=== PATIENT | female | born 1975 | race Caucasian/White ===

== ENCOUNTER → 2016-10-18 | Outpatient (REF) | payer OTHER ==
[2016-10-18 16:46] LABS: MEAN CORPUSCULAR VOLUME 90.6 fl (80.0-96.0); RED CELL DISTRIBUTION WIDTH 14.1 % (11.5-14.5); WHITE BLOOD COUNT 9.6 K/mm3 (4.0-10.0)
[2016-10-18 18:30] LABS: ALBUMIN 3.9 GM/DL (3.2-5.2); ALBUMIN/GLOBULIN RATIO 1.34 (1.00-1.93); ALKALINE PHOSPHATASE 93 U/L (45-117); ALT/SGPT 27 U/L (12-78); ANION GAP 6 MEQ/L (8-16); AST/SGOT 14 U/L (15-37); BILIRUBIN,TOTAL 0.2 MG/DL (0.2-1.0); BLOOD UREA NITROGEN 10 MG/DL (7-18); CALCIUM LEVEL 8.8 MG/DL (8.5-10.1); CARBON DIOXIDE LEVEL 28 MEQ/L (21-32); CHLORIDE LEVEL 106 MEQ/L (98-107); CREATININE FOR GFR 0.75 MG/DL (0.55-1.02); GLOMERULAR FILTRATION RATE > 60.0 (>58); GLUCOSE, FASTING 90 MG/DL (70-105); POTASSIUM SERUM 4.5 MEQ/L (3.5-5.1); SODIUM LEVEL 140 MEQ/L (136-145); TOTAL PROTEIN 6.8 GM/DL (6.4-8.2)
== END ==
LOC: M SFHCLERA 13:00
PROVIDERS: ATTEND Nurse Practitioner Family
DX: R06.09 Other forms of dyspnea (principal)

== ENCOUNTER → 2016-12-16 | Outpatient (CLI) | payer OTHER ==
--- NOTE | 2016-12-16 12:20 | REP ---
Cervical spine series: Nine views. History: Numbness in tingling in the left arm. Findings: Lateral views done in flexion/extension and neutral position show preserved vertebral body heights and normal alignment in the cervical spine. Disc spaces are maintained except at C5-6 where there is mild disc space narrowing. No subluxation or instability is seen. Swimmer's lateral view shows no additional abnormality. Oblique images demonstrate intact neural foramina on the left at each level. On the right, there is minimal uncovertebral spurring visible at C5-6. AP and open mouth odontoid views are unremarkable. Impression: Mild degenerative disc narrowing at C5-6. There is minimal uncovertebral spurring on the right at C5-6 visible radiographically. Otherwise negative cervical spine series. Signed by Anjel Cedillo MD 12/16/2016 12:31 P
== END ==
LOC: M LRY 10:45
PROVIDERS: ATTEND Family Medicine
DX: R20.0 Anesthesia of skin (principal); M50.90 Cervical disc disorder, unspecified, unspecified cervical region

== ENCOUNTER → 2016-12-16 | Outpatient (REF) | payer OTHER | LOC: M SFHCLERA 10:21 | PROVIDERS: ATTEND Family Medicine | DX: R30.0 Dysuria (principal) ==

== ENCOUNTER → 2017-03-07 | Outpatient (CLI) | payer OTHER ==
--- NOTE | 2017-03-07 12:47 | REP ---
Pelvic ultrasound including transabdominal, endovaginal and Doppler ultrasound assessment: The bladder is adequately distended. The uterus is anteverted. The fundus is mildly retroflexed. The uterus is normal size measuring 8.3 x 4.3 by 4.6 cm. The myometrium is heterogeneous. There is an IUD in the endometrial canal. This obscures visualization of the endometrium. Endometrial thickness cannot be assessed. There is no free fluid in the endometrial canal. The right ovary is normal size measuring 2.6 x 1.9 x 2.8 cm. There is no dominant right ovarian mass or cyst. There is vascular flow in right ovary with the Doppler resistive index of intraparenchymal arteries measuring 0.31. The left ovary could not be visualized on transabdominal or endovaginal imaging. Impression: There is an IUD within the endometrial canal. The myometrium is heterogeneous. The right ovary is unremarkable. The left ovary could not be visualized. Signed by Bola Rodrigues MD 03/07/2017 12:39 P
== END ==
LOC: M RAD 11:52
PROVIDERS: ATTEND Advanced Practice Midwife
DX: N92.4 Excessive bleeding in the premenopausal period (principal); Z97.5 Presence of (intrauterine) contraceptive device

== ENCOUNTER 2017-06-29 12:48 | Emergency (ER) | payer OTHER ==
[~2017-06-29] VITALS: Ht 165.1 cm; Wt 88.6 kg
[2017-06-29] MEDS ORDERED: LOSARTAN/HCT (13:07)
[2017-06-29] MEDS ORDERED: ATOR1TAB19 (13:07)
[2017-06-29 14:39] VITALS: BP 142/86
== END 2017-06-29 15:05 | disposition home or self-care (01) ==
LOC: M ED 12:48
DX: E86.0 Dehydration (principal); I10 Essential (primary) hypertension; Z87.891 Personal history of nicotine dependence

== ENCOUNTER → 2017-08-01 | Outpatient (REF) | payer OTHER ==
[2017-08-01 16:42] LABS: BASO # 0.1 10^3/uL (0.0-0.2); BASO % 0.5 % (0.0-1.0); EOS # 0.1 10^3/uL (0.0-0.50); EOS % 1.1 % (0.0-3.0); HEMATOCRIT 43.9 % (36.0-47.0); HEMOGLOBIN 13.9 g/dl (12.0-16.0); IMMATURE GRANULOCYTE % 0.4 % (0-0); LYMPH # 2.2 10^3/uL (1.5-4.5); LYMPH % 21.1 % (24.0-44.0); MEAN CORPUSCULAR HEMOGLOBIN 28.6 pg (27.0-33.0); MEAN CORPUSCULAR HGB CONC 31.7 g/dl (32.0-36.5); MEAN CORPUSCULAR VOLUME 90.3 fl (80.0-96.0); MONO # 0.7 10^3/uL (0.0-0.8); MONO % 6.4 % (0.0-5.0); NEUTROPHILS # 7.3 10^3/uL (1.8-7.7); NEUTROPHILS % 70.5 % (36.0-66.0); PLATELET COUNT, AUTOMATED 279 10^3/uL (150-450); RED BLOOD COUNT 4.86 10^6/uL (4.00-5.40); RED CELL DISTRIBUTION WIDTH 15.2 % (11.5-14.5); WHITE BLOOD COUNT 10.3 10^3/uL (4.0-10.0)
[2017-08-01 17:16] LABS: ESTIMATED AVERAGE GLUCOSE 114 MG/DL (60-110); HEMOGLOBIN A1c 5.6 %
[2017-08-01 17:18] LABS: CHOLESTEROL LEVEL 182 MG/DL (<200); CHOLESTEROL RISK RATIO 2.935 (<5); FREE T4 0.92 NG/DL (0.76-1.46); HDL CHOLESTEROL 62 MG/DL (>40); LDL CHOLESTEROL 82.6 MG/DL (<100); NON-HDL-C 120 MG/DL; TRIGLYCERIDES LEVEL 187 MG/DL (<150)
== END ==
LOC: M SFHCLERA 11:22
DX: E78.5 Hyperlipidemia, unspecified (principal); I10 Essential (primary) hypertension; R53.83 Other fatigue

== ENCOUNTER → 2017-09-11 | Outpatient (REF) | payer OTHER ==
[2017-09-11 13:26] LABS: FREE T4 0.87 NG/DL (0.76-1.46)
== END ==
LOC: M SFHCLERA 09:19
DX: R53.83 Other fatigue (principal); D72.9 Disorder of white blood cells, unspecified

== ENCOUNTER 2018-04-06 13:19 | Emergency (ER) | payer OTHER ==
[2018-04-06 14:05] LABS: BASO # 0.1 10^3/uL (0.0-0.2); BASO % 0.4 % (0.0-1.0); EOS # 0.1 10^3/uL (0.0-0.50); EOS % 0.9 % (0.0-3.0); HEMOGLOBIN 14.6 g/dl (12.0-15.5); IMMATURE GRANULOCYTE % 0.4 % (0-3.0); LYMPH # 2.6 10^3/uL (1.5-4.5); MEAN CORPUSCULAR HEMOGLOBIN 31.7 pg (27.0-33.0); MEAN CORPUSCULAR HGB CONC 33.2 g/dl (32.0-36.5); MEAN CORPUSCULAR VOLUME 95.7 fl (80.0-96.0); MONO # 0.9 10^3/uL (0.0-0.8); MONO % 7.4 % (0.0-5.0); NEUTROPHILS % 68.9 % (36.0-66.0); PLATELET COUNT, AUTOMATED 230 10^3/uL (150-450); RED CELL DISTRIBUTION WIDTH 13.2 % (11.5-14.5); WHITE BLOOD COUNT 11.6 10^3/uL (4.0-10.0)
[2018-04-06 14:21] LABS: INR 0.96; PARTIAL THROMBOPLASTIN TIME 30.7 SECONDS (25.4-37.6); PROTHROMBIN TIME 12.8 SECONDS (12.1-14.4)
[2018-04-06 14:34] LABS: ANION GAP 7 MEQ/L (8-16); AST/SGOT 19 U/L (7-37); BILIRUBIN,DIRECT 0.1 MG/DL (0.0-0.2); BLOOD UREA NITROGEN 8 MG/DL (7-18); CALCIUM LEVEL 9.1 MG/DL (8.5-10.1); CARBON DIOXIDE LEVEL 29 MEQ/L (21-32); CHLORIDE LEVEL 104 MEQ/L (98-107); CREATININE FOR GFR 0.86 MG/DL (0.55-1.30); GLOMERULAR FILTRATION RATE > 60.0 (>58); GLUCOSE, FASTING 91 MG/DL (70-100); LIPASE 133 U/L (73-393); POTASSIUM SERUM 3.8 MEQ/L (3.5-5.1); SODIUM LEVEL 140 MEQ/L (136-145); TROPONIN I < 0.02 NG/ML (< 0.10)
[2018-04-06] MEDS: GI COCKTAIL 50ML BTL(HYOSCYAMINE/MAALOX/LIDOCAINE VISCOUS)(1:3:1) PO (14:45)
[2018-04-06 14:48] LABS: ALBUMIN/GLOBULIN RATIO 1.11 (1.00-1.93); ALKALINE PHOSPHATASE 86 U/L (45-117); ALT/SGPT 30 U/L (12-78); BILIRUBIN,TOTAL 0.6 MG/DL (0.2-1.0); CK-MB VALUE MASS < 1.0 NG/ML (<3.6); CPK CREATINE PHOSPHOKINASE 119 U/L (26-192); FREE T4 0.98 NG/DL (0.76-1.46); MB/CK RELATIVE INDEX 0.84 (< OR =4); TOTAL PROTEIN 7.6 GM/DL (6.4-8.2)
== END 2018-04-06 15:39 | disposition home or self-care (01) ==
LOC: M ED 13:19
DX: R00.2 Palpitations (principal); I10 Essential (primary) hypertension; E78.5 Hyperlipidemia, unspecified; F17.200 Nicotine dependence, unspecified, uncomplicated; Z79.899 Other long term (current) drug therapy; Z79.82 Long term (current) use of aspirin
CPT/HCPCS: 71045

== ENCOUNTER → 2018-07-30 | Outpatient (REF) | payer OTHER ==
[~2018-07-30] MED LIST: AMLO25TA PO; ASPI81TA85 PO; ATOR1TAB19; LOSARTAN/HCT
[2018-07-30 11:58] LABS: BASO # 0.1 10^3/uL (0.0-0.2); BASO % 0.6 % (0.0-1.0); EOS # 0.2 10^3/uL (0.0-0.50); EOS % 1.7 % (0.0-3.0); HEMOGLOBIN 14.3 g/dl (12.0-15.5); LYMPH # 2.1 10^3/uL (1.5-4.5); MEAN CORPUSCULAR HEMOGLOBIN 32.4 pg (27.0-33.0); MEAN CORPUSCULAR HGB CONC 33.3 g/dl (32.0-36.5); MEAN CORPUSCULAR VOLUME 97.5 fl (80.0-96.0); MONO # 0.7 10^3/uL (0.0-0.8); MONO % 7.2 % (0.0-5.0); NEUTROPHILS # 6.6 10^3/uL (1.8-7.7); PLATELET COUNT, AUTOMATED 223 10^3/uL (150-450); RED BLOOD COUNT 4.41 10^6/uL (4.00-5.40); WHITE BLOOD COUNT 9.7 10^3/uL (4.0-10.0)
[2018-07-30 12:34] LABS: ALBUMIN 3.5 GM/DL (3.2-5.2); ALT/SGPT 44 U/L (12-78); BILIRUBIN,TOTAL 0.6 MG/DL (0.2-1.0); BLOOD UREA NITROGEN 12 MG/DL (7-18); CALCIUM LEVEL 8.4 MG/DL (8.5-10.1); CARBON DIOXIDE LEVEL 26 MEQ/L (21-32); CHLORIDE LEVEL 105 MEQ/L (98-107); CHOLESTEROL LEVEL 138 MG/DL (<200); CHOLESTEROL RISK RATIO 2.875 (<5); CREATININE FOR GFR 0.72 MG/DL (0.55-1.30); FREE T4 0.83 NG/DL (0.76-1.46); GLOMERULAR FILTRATION RATE > 60.0 (>58); GLUCOSE, FASTING 91 MG/DL (70-100); HDL CHOLESTEROL 48 MG/DL (>40); LDL CHOLESTEROL 62 MG/DL (<100); NON-HDL-C 90 MG/DL; POTASSIUM SERUM 4.3 MEQ/L (3.5-5.1); SODIUM LEVEL 138 MEQ/L (136-145); TOTAL PROTEIN 6.5 GM/DL (6.4-8.2); TRIGLYCERIDES LEVEL 138 MG/DL (<150)
[2018-07-30 13:18] LABS: HEMOGLOBIN A1c 5.8 %
== END ==
LOC: M SFHCLERA 09:10
PROVIDERS: ATTEND Family Medicine
DX: D72.829 Elevated white blood cell count, unspecified (principal)

== ENCOUNTER → 2018-12-27 | Outpatient (CLI) | payer OTHER ==
--- NOTE | 2018-12-27 16:03 | REP ---
Clinical: Decreased breath sounds . Comparison: 04/06/2018 . Technique: PA and lateral. Findings: The mediastinum and cardiac silhouette are normal. The lung gonzalez are clear and without acute consolidation, effusion, or pneumothorax. The skeletal structures are intact and normal. Impression: 1. No acute cardiopulmonary process. Electronically Signed by Vargas Wesley MD 12/27/2018 03:55 P
--- NOTE | 2018-12-27 16:07 | REP ---
Clinical: Nausea. Technique: Two supine views of the abdomen and pelvis. Findings: Bowel gas pattern is nonspecific. No organomegaly. No abnormal calcifications. Skeletal structures are intact. IUD identified in the pelvis. Impression: Nonspecific abdominal radiographs. Electronically Signed by Vargas Wesley MD 12/27/2018 03:58 P
== END ==
LOC: M LRY 15:18
PROVIDERS: ATTEND Nurse Practitioner Family
DX: R06.89 Other abnormalities of breathing (principal); R11.0 Nausea

== ENCOUNTER 2019-02-23 09:43 | Emergency (ER) | payer OTHER ==
[~2019-02-23] VITALS: Ht 162.6 cm; Wt 87.3 kg
[2019-02-23] MEDS ORDERED: LOSA100T5 (09:52)
[2019-02-23] MEDS ORDERED: MIRE1IUD IU (09:53)
[2019-02-23 10:39] LABS: BASO # 0.1 10^3/uL (0.0-0.2); BASO % 0.5 % (0.0-1.0); EOS # 0.1 10^3/uL (0.0-0.50); EOS % 0.8 % (0.0-3.0); HEMATOCRIT 48.6 % (36.0-47.0); HEMOGLOBIN 15.9 g/dl (12.0-15.5); LYMPH # 2.5 10^3/uL (1.5-4.5); LYMPH % 20.8 % (24.0-44.0); MEAN CORPUSCULAR HEMOGLOBIN 31.6 pg (27.0-33.0); MEAN CORPUSCULAR HGB CONC 32.7 g/dl (32.0-36.5); MEAN CORPUSCULAR VOLUME 96.6 fl (80.0-96.0); MONO # 0.8 10^3/uL (0.0-0.8); MONO % 6.7 % (0.0-5.0); NEUTROPHILS # 8.6 10^3/uL (1.8-7.7); NEUTROPHILS % 70.8 % (36.0-66.0); PLATELET COUNT, AUTOMATED 242 10^3/uL (150-450); RED BLOOD COUNT 5.03 10^6/uL (4.00-5.40); WHITE BLOOD COUNT 12.2 10^3/uL (4.0-10.0)
[2019-02-23] MEDS ORDERED: ZOFR4TAB16 PO (10:40)
[2019-02-23] MEDS ORDERED: TRUVTAB PO (10:40)
[2019-02-23] MEDS ORDERED: RALT40TA PO (10:40)
[2019-02-23] MEDS ORDERED: HEPATITIS B IMMUNE GLOBULIN 110 UNIT/0.5 ML IM ONE (10:45)
[2019-02-23] MEDS ORDERED: EXPOSURE KIT-ADULT 7 DAY SUPPLY PO ONE (11:00)
[2019-02-23 11:13] LABS: HIVEXPOSED0 NEGATIVE (NEGATIVE)
[2019-02-23] MEDS ORDERED: HEPATITIS B IMMUNE GLOBULIN 5ML INJ (J1571) IM ONE (11:15)
[2019-02-23 11:40] VITALS: BP 148/87
[2019-02-25 10:33] LABS: HEPATITIS B SURFACE ANTIBODY NEGATIVE (POSITIVE); HEPATITIS B SURFACE ANTIGEN NEGATIVE (NEGATIVE)
== END 2019-02-23 11:47 | disposition home or self-care (01) ==
LOC: M ED 09:43
DX: Z77.21 Contact with and (suspected) exposure to potentially hazardous body fluids (principal); I10 Essential (primary) hypertension; E78.5 Hyperlipidemia, unspecified; Z79.899 Other long term (current) drug therapy; Z97.5 Presence of (intrauterine) contraceptive device; F17.210 Nicotine dependence, cigarettes, uncomplicated

== ENCOUNTER → 2019-02-28 | Outpatient (REF) | payer OTHER ==
[~2019-02-28] MED LIST changes: +LOSA100T5; +MIRE1IUD IU; +RALT40TA PO; +TRUVTAB PO; +ZOFR4TAB16 PO
[2019-02-28 17:13] LABS: ALBUMIN 3.9 GM/DL (3.2-5.2); ALT/SGPT 29 U/L (12-78); BILIRUBIN,TOTAL 0.6 MG/DL (0.2-1.0); BLOOD UREA NITROGEN 6 MG/DL (7-18); CALCIUM LEVEL 8.9 MG/DL (8.5-10.1); CARBON DIOXIDE LEVEL 29 MEQ/L (21-32); CHLORIDE LEVEL 103 MEQ/L (98-107); CHOLESTEROL LEVEL 152 MG/DL (<200); CHOLESTEROL RISK RATIO 3.534 (<5); CREATININE FOR GFR 0.87 MG/DL (0.55-1.30); FREE T4 1.05 NG/DL (0.76-1.46); GLOMERULAR FILTRATION RATE > 60.0 (>58); GLUCOSE, FASTING 85 MG/DL (70-100); HDL CHOLESTEROL 43 MG/DL (>40); LDL CHOLESTEROL 82 MG/DL (<100); NON-HDL-C 109 MG/DL; POTASSIUM SERUM 3.9 MEQ/L (3.5-5.1); SODIUM LEVEL 141 MEQ/L (136-145); TOTAL PROTEIN 6.9 GM/DL (6.4-8.2); TRIGLYCERIDES LEVEL 133 MG/DL (<150)
[2019-02-28 17:16] LABS: HEMATOCRIT 45.8 % (36.0-47.0); HEMOGLOBIN 14.8 g/dl (12.0-15.5); MEAN CORPUSCULAR HEMOGLOBIN 31.1 pg (27.0-33.0); MEAN CORPUSCULAR HGB CONC 32.3 g/dl (32.0-36.5); MEAN CORPUSCULAR VOLUME 96.2 fl (80.0-96.0); PLATELET COUNT, AUTOMATED 228 10^3/uL (150-450); RED BLOOD COUNT 4.76 10^6/uL (4.00-5.40); WHITE BLOOD COUNT 10.3 10^3/uL (4.0-10.0)
== END ==
LOC: M LRY 16:10
PROVIDERS: ATTEND Internal Medicine Cardiovascular Disease
DX: I10 Essential (primary) hypertension (principal); E78.5 Hyperlipidemia, unspecified

== ENCOUNTER → 2019-02-28 | Outpatient (REF) | payer OTHER | LOC: M SFHCLERA 10:50 | PROVIDERS: ATTEND Family Medicine | DX: Z78.9 Other specified health status (principal) ==

== ENCOUNTER → 2019-07-16 | Outpatient (REF) | payer OTHER ==
[2019-07-16 16:31] LABS: BASO # 0.1 10^3/uL (0.0-0.2); BASO % 0.7 % (0.0-1.0); EOS # 0.1 10^3/uL (0.0-0.5); EOS % 1.1 % (0.0-3.0); HEMATOCRIT 47.4 % (36.0-47.0); HEMOGLOBIN 14.9 g/dl (12.0-15.5); LYMPH # 2.5 10^3/uL (1.5-5.0); LYMPH % 24.8 % (24.0-44.0); MEAN CORPUSCULAR HEMOGLOBIN 31.7 pg (27.0-33.0); MEAN CORPUSCULAR HGB CONC 31.4 g/dl (32.0-36.5); MEAN CORPUSCULAR VOLUME 100.9 fl (80.0-96.0); MONO # 0.8 10^3/uL (0.0-0.8); MONO % 7.7 % (0.0-5.0); NEUTROPHILS # 6.6 10^3/uL (1.5-8.5); NEUTROPHILS % 65.4 % (36.0-66.0); PLATELET COUNT, AUTOMATED 237 10^3/uL (150-450); WHITE BLOOD COUNT 10.2 10^3/uL (4.0-10.0)
[2019-07-16 16:51] LABS: ALT/SGPT 24 U/L (12-78); BILIRUBIN,TOTAL 0.4 MG/DL (0.2-1.0); BLOOD UREA NITROGEN 11 MG/DL (7-18); CALCIUM LEVEL 8.8 MG/DL (8.5-10.1); CARBON DIOXIDE LEVEL 26 MEQ/L (21-32); CHLORIDE LEVEL 107 MEQ/L (98-107); CREATININE FOR GFR 0.74 MG/DL (0.55-1.30); GLOMERULAR FILTRATION RATE > 60.0 (>58); GLUCOSE, FASTING 89 MG/DL (70-100); POTASSIUM SERUM 4.4 MEQ/L (3.5-5.1); SODIUM LEVEL 140 MEQ/L (136-145); TOTAL PROTEIN 7.2 GM/DL (6.4-8.2)
[2019-07-17 13:56] LABS: HIV SCREEN CENTAUR EXPOSED NEGATIVE (NEGATIVE)
== END ==
LOC: M SFHCLERA 10:39
PROVIDERS: ATTEND Family Medicine
DX: Z57.9 Occupational exposure to unspecified risk factor (principal); R63.4 Abnormal weight loss

== ENCOUNTER → 2019-08-08 | Outpatient (REF) | payer OTHER ==
[2019-08-08 17:27] LABS: BASO % 0.4 % (0.0-1.0); EOS # 0.1 10^3/uL (0.0-0.5); EOS % 0.6 % (0.0-3.0); HEMATOCRIT 47.3 % (36.0-47.0); HEMOGLOBIN 15.2 g/dl (12.0-15.5); LYMPH # 2.2 10^3/uL (1.5-5.0); LYMPH % 19.5 % (24.0-44.0); MEAN CORPUSCULAR HEMOGLOBIN 32.5 pg (27.0-33.0); MEAN CORPUSCULAR HGB CONC 32.1 g/dl (32.0-36.5); MEAN CORPUSCULAR VOLUME 101.1 fl (80.0-96.0); MONO # 0.7 10^3/uL (0.0-0.8); NEUTROPHILS # 8.1 10^3/uL (1.5-8.5); PLATELET COUNT, AUTOMATED 225 10^3/uL (150-450); RED BLOOD COUNT 4.68 10^6/uL (4.00-5.40); WHITE BLOOD COUNT 11.1 10^3/uL (4.0-10.0)
[2019-08-08 17:40] LABS: FOLATE 4.6 NG/ML
== END ==
LOC: M SFHCLERA 10:42
PROVIDERS: ATTEND Family Medicine
DX: D75.89 Other specified diseases of blood and blood-forming organs (principal)

== ENCOUNTER → 2019-10-01 | Outpatient (CLI) | payer OTHER ==
[~2019-10-01] MED LIST changes: +HYDR25TAB PO; +LOSA100T50 PO; +VITA500079 PO
--- NOTE | 2019-10-01 10:05 | REP ---
ULTRASOUND ABDOMEN: Real-time sonographic evaluation of the abdomen performed. The gallbladder demonstrates no evidence of intraluminal sludge or calculi, wall thickening or pericholecystic fluid. There is no intrahepatic or extrahepatic biliary dilation, common bile duct measuring 4 mm. Liver is somewhat heterogenous in echotexture with no gross mass. There is normal direction of flow in the main portal vein which measures 12 mm. There appears to be patent umbilical vein suggesting portal hypertension. Visualized pancreas is grossly unremarkable but not optimally seen due to overlying bowel gas. The spleen has a normal length of 11.3 cm but the splenic index is slightly increased at 548, normal less than 480. Spleen measures 11.3 x 9.9 x 4.9 cm. No intrinsic abnormality is seen. Kidneys are normal in size and echotexture, right kidney measuring 11.1 x 4.0 x 3.9 cm and left kidney 11.1 x 4.9 x 4.4 cm. There is no overt hydronephrosis and no renal mass is seen. Small extrarenal pelvis is seen bilaterally. Abdominal aorta is normal in caliber with no aneurysm, proximally measuring 2.5 cm in AP dimension and distally 1.3 cm. No ascites is seen. IMPRESSION: Somewhat heterogenous echotexture of the liver. Patent umbilical vein suggests portal hypertension. Main portal vein measures 12 mm with normal direction of flow. Spleen is normal in length at 11.3 cm but the splenic index is mildly increased at 548, suggesting that the spleen is upper limits of normal to slightly enlarged. Electronically Signed by Bola Barba MD 10/01/2019 07:50 P
== END ==
LOC: M RAD 07:57
PROVIDERS: ATTEND Internal Medicine Hematology & Oncology
DX: D75.0 Familial erythrocytosis (principal); D75.89 Other specified diseases of blood and blood-forming organs

== ENCOUNTER → 2019-10-16 | Outpatient (REF) | payer OTHER ==
[2019-10-16 16:52] LABS: FERRITIN 52 NG/ML (8-252); IRON (FE) 112 UG/DL (50-170); PERCENT SATURATION 26.9 % (13.2-45.0); TOTAL IRON BINDING CAPACITY 416 UG/DL (250-450); TOTAL PROTEIN 7.2 GM/DL (6.4-8.2)
[2019-10-17 14:28] LABS: ALBUMIN 4.54 GM/DL (3.29-5.55); ALPHA-1-GLOBULIN % 4.4 % (2.9-4.9); ALPHA-1-GLOBULINS 0.32 GM/DL (0.17-0.41); ALPHA-2-GLOBULINS 0.75 GM/DL (0.42-0.99); ALPHA-2-GLOBULINS % 10.4 % (7.1-11.8); BETA-1-GLOBULINS 0.47 GM/DL (0.28-0.60); BETA-1-GLOBULINS % 6.5 % (4.7-7.2); BETA-2-GLOBULINS 0.34 GM/DL (0.19-0.55); BETA-2-GLOBULINS % 4.7 % (3.2-6.5); GAMMA GLOBULINS 0.79 GM/DL (0.65-1.58)
[2019-10-18 09:45] LABS: HEPATITIS B SURFACE ANTIGEN NEGATIVE (NEGATIVE)
[2019-10-18 10:13] LABS: HEPATITIS B CORE ANTIBODY IGM NEGATIVE (NEGATIVE)
[2019-10-18 10:15] LABS: HEPATITIS A ANTIBODY IGM NEGATIVE (NEGATIVE)
== END ==
LOC: M SFHCLERA 11:01
PROVIDERS: ATTEND Family Medicine
DX: K76.6 Portal hypertension (principal)

== ENCOUNTER 2020-03-21 20:09 | Emergency (ER) | payer OTHER ==
[~2020-03-21] VITALS: Ht 162.6 cm; Wt 76.4 kg
[~2020-03-21 20:09] MED LIST changes: -ASPI81TA85 PO; +ASPI81TA86 PO
[2020-03-21] MEDS ORDERED: GNP28TAB2 PO (20:14)
[2020-03-21] MEDS ORDERED: VITA100T28 PO (20:14)
[2020-03-21 20:47] LABS: BASO # 0.1 10^3/uL (0.0-0.2); BASO % 0.6 % (0.0-1.0); EOS # 0.1 10^3/uL (0.0-0.5); EOS % 0.8 % (0.0-3.0); HEMATOCRIT 48.9 % (36.0-47.0); HEMOGLOBIN 16.1 g/dl (12.0-15.5); LYMPH % 24.9 % (24.0-44.0); MEAN CORPUSCULAR HEMOGLOBIN 32.9 pg (27.0-33.0); MEAN CORPUSCULAR HGB CONC 32.9 g/dl (32.0-36.5); MONO # 0.8 10^3/uL (0.0-0.8); MONO % 6.6 % (0.0-5.0); NEUTROPHILS % 66.8 % (36.0-66.0); PLATELET COUNT, AUTOMATED 244 10^3/uL (150-450); RED BLOOD COUNT 4.89 10^6/uL (4.00-5.40)
[2020-03-21 20:56] LABS: INR 0.92; PROTHROMBIN TIME 12.5 SECONDS (11.8-14.0)
[2020-03-21] MEDS ORDERED: GI COCKTAIL 50ML BTL(HYOSCYAMINE/MAALOX/LIDOCAINE VISCOUS)(1:3:1) PO ONE (21:15)
--- NOTE | 2020-03-21 21:16 | REPVR ---
PROCEDURE INFORMATION: Exam: XR Chest, 1 View Exam date and time: 03/21/2020 8:51 PM Age: 44 years old Clinical indication: Other: Chest pain TECHNIQUE: Imaging protocol: XR of the chest Views: 1 view. COMPARISON: CR CHEST 2 VIEW 12/27/2018 3:39 PM FINDINGS: Lungs: Unremarkable. No consolidation. Pleural space: Unremarkable. No pleural effusion. No pneumothorax. Heart/Mediastinum: Unremarkable. No cardiomegaly. Bones/joints: Minimal upper thoracic dextroscoliosis and minimal lower thoracic levoscoliosis. IMPRESSION: 1. Minimal S shaped scoliosis of the thoracic spine. 2. Otherwise negative chest without significant change from 12/27/2018. Electronically signed by: Ranulfo Barrios On 03/21/2020 21:16:31 PM
[2020-03-21 21:46] LABS: ALT/SGPT 24 U/L (12-78); BILIRUBIN,DIRECT 0.1 MG/DL (0.0-0.2); BILIRUBIN,TOTAL 0.3 MG/DL (0.2-1.0); BLOOD UREA NITROGEN 8 MG/DL (7-18); CALCIUM LEVEL 9.1 MG/DL (8.5-10.1); CARBON DIOXIDE LEVEL 29 MEQ/L (21-32); CHLORIDE LEVEL 107 MEQ/L (98-107); CK-MB VALUE MASS < 1.0 NG/ML (<3.6); CPK CREATINE PHOSPHOKINASE 83 U/L (26-192); CREATININE FOR GFR 0.78 MG/DL (0.55-1.30); GLOMERULAR FILTRATION RATE > 60.0 (>58); GLUCOSE, FASTING 68 MG/DL (70-100); LIPASE 98 U/L (73-393); POTASSIUM SERUM 3.7 MEQ/L (3.5-5.1); SODIUM LEVEL 139 MEQ/L (136-145); TROPONIN I < 0.02 NG/ML (< 0.10)
[2020-03-21] MEDS ORDERED: PANTOPRAZOLE 40MG VIAL (C9113 PER 1) IV ONE (22:00)
[2020-03-22] MEDS ORDERED: PROT1TAB2 PO (02:35)
[2020-03-22 02:49] VITALS: BP 128/78
--- NOTE | 2020-04-08 18:41 | ECGEPIP ---
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
--- NOTE | 2020-04-08 18:45 | ECGEPIP ---
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
== END 2020-03-22 02:50 | disposition home or self-care (01) ==
LOC: M ED 20:09
DX: K21.9 Gastro-esophageal reflux disease without esophagitis (principal); I10 Essential (primary) hypertension; E78.5 Hyperlipidemia, unspecified; Z79.899 Other long term (current) drug therapy; Z79.82 Long term (current) use of aspirin; Z97.5 Presence of (intrauterine) contraceptive device; F17.210 Nicotine dependence, cigarettes, uncomplicated
CPT/HCPCS: 71045; 80048; 80076; 82550; 82553; 83690; 85025; 85610; 93005; 93041; 94760; 96374; 99284; C9113

== ENCOUNTER → 2020-08-09 | Outpatient (REF) | payer OTHER ==
[~2020-08-09] MED LIST changes: +GNP28TAB2 PO; +PROT1TAB2 PO; +VITA100T28 PO
[2020-08-09 09:25] LABS: ALT/SGPT 34 IU/L (0-32); BILIRUBIN,DIRECT < 0.1 MG/DL (0.0-0.2); BILIRUBIN,TOTAL 0.3 MG/DL (0.2-1.0); TOTAL PROTEIN 6.8 GM/DL (6.4-8.2)
[2020-08-10 14:22] LABS: HEPATITIS B SURFACE ANTIBODY NEGATIVE (POSITIVE)
[2020-08-11 17:07] LABS: ANTI-MITOCHONDRIAL ANTIBODY <20.0 Units (0.0-20.0); CERULOPLASMIN 17.3 mg/dL (19.0-39.0); HEPATITIS A IgG TOTAL Negative (Negative)
== END ==
LOC: M LAB REF 07:43
PROVIDERS: ATTEND Internal Medicine Gastroenterology
DX: K74.60 Unspecified cirrhosis of liver (principal); K76.6 Portal hypertension

== ENCOUNTER → 2021-02-04 | Outpatient (REF) | payer OTHER ==
[~2021-02-04] MED LIST changes: +EMTR1TAB16 PO; +HYDR-3490 PO; -HYDR25TAB PO; +LOSA100T45 PO; -LOSA100T50 PO; -TRUVTAB PO
== END ==
LOC: M SFHCLERA 15:46
PROVIDERS: ATTEND Student in an Organized Health Care Education/Training Program
DX: R30.0 Dysuria (principal)

== ENCOUNTER → 2021-07-27 | Outpatient (CLI) | payer OTHER | LOC: M RAD 08:22 | PROVIDERS: ATTEND Internal Medicine Gastroenterology | DX: K76.6 Portal hypertension (principal); R93.3 Abnormal findings on diagnostic imaging of other parts of digestive tract; K74.60 Unspecified cirrhosis of liver ==

== ENCOUNTER → 2022-02-10 | Outpatient (CLI) | payer OTHER ==
[~2022-02-10] MED LIST changes: +ASPI81TA26 PO; -ATOR1TAB19; +ATOR1TAB19 PO; +CHLO50TA PO; +VITA100093 PO
[2022-02-10 09:54] LABS: INR 0.89; PROTHROMBIN TIME 12.4 SECONDS (12.7-14.5)
[2022-02-10 11:01] LABS: ALBUMIN 3.5 GM/DL (3.2-5.2); ALT/SGPT 29 U/L (12-78); BILIRUBIN,DIRECT 0.1 MG/DL (0.0-0.2); BILIRUBIN,TOTAL 0.5 MG/DL (0.2-1.0); BLOOD UREA NITROGEN 7 MG/DL (7-18); CALCIUM LEVEL 8.8 MG/DL (8.5-10.1); CARBON DIOXIDE LEVEL 29 MEQ/L (21-32); CHLORIDE LEVEL 108 MEQ/L (98-107); CREATININE FOR GFR 0.78 MG/DL (0.55-1.30); FREE T4 0.95 NG/DL (0.76-1.46); GLOMERULAR FILTRATION RATE > 60.0 (>58); GLUCOSE, FASTING 98 MG/DL (70-100); POTASSIUM SERUM 3.7 MEQ/L (3.5-5.1); SODIUM LEVEL 139 MEQ/L (136-145); TOTAL PROTEIN 6.7 GM/DL (6.4-8.2)
== END ==
LOC: M LAB 09:16
PROVIDERS: ATTEND Internal Medicine Gastroenterology
DX: K76.6 Portal hypertension (principal)

== ENCOUNTER → 2022-02-10 | Outpatient (CLI) | payer OTHER ==
[~2022-02-10] MED LIST changes: -ASPI81TA26 PO; +ATOR1TAB19; -ATOR1TAB19 PO; -CHLO50TA PO; -VITA100093 PO
[2022-02-10 10:09] LABS: ALBUMIN 3.6 GM/DL (3.2-5.2); ALT/SGPT 27 U/L (12-78); BILIRUBIN,TOTAL 0.5 MG/DL (0.2-1.0); BLOOD UREA NITROGEN 8 MG/DL (7-18); CALCIUM LEVEL 9.1 MG/DL (8.5-10.1); CARBON DIOXIDE LEVEL 27 MEQ/L (21-32); CHLORIDE LEVEL 107 MEQ/L (98-107); CHOLESTEROL LEVEL 202 MG/DL (<200); CHOLESTEROL RISK RATIO 4.297 (<5); CREATININE FOR GFR 0.77 MG/DL (0.55-1.30); GLOMERULAR FILTRATION RATE > 60.0 (>58); GLUCOSE, FASTING 96 MG/DL (70-100); HDL CHOLESTEROL 47 MG/DL (>40); LDL CHOLESTEROL 104 MG/DL (<100); NON-HDL-C 155 MG/DL; POTASSIUM SERUM 3.7 MEQ/L (3.5-5.1); SODIUM LEVEL 141 MEQ/L (136-145); TOTAL PROTEIN 6.7 GM/DL (6.4-8.2); TRIGLYCERIDES LEVEL 253 MG/DL (<150)
== END ==
LOC: M LAB 09:18
PROVIDERS: ATTEND Nurse Practitioner Family
DX: E78.5 Hyperlipidemia, unspecified (principal)

== ENCOUNTER → 2022-02-20 | Outpatient (CLI) | payer OTHER ==
[~2022-02-20] MED LIST changes: +ASPI81TA26 PO; -ATOR1TAB19; +ATOR1TAB19 PO; +CHLO50TA PO; +VITA100093 PO
== END ==
LOC: M LABSMTC 09:42
PROVIDERS: ATTEND Anesthesiology
DX: Z01.812 Encounter for preprocedural laboratory examination (principal); Z20.822 Contact with and (suspected) exposure to COVID-19

== ENCOUNTER 2022-02-22 08:43 | Day surgery (SDC) | payer OTHER ==
[~2022-02-22] VITALS: Ht 162.6 cm; Wt 83.0 kg
[2022-02-22 10:28] VITALS: BP 141/87
[2022-02-22] MEDS ORDERED: NS 1,000 ML IV ONE (10:45)
[2022-02-22] MEDS ORDERED: GLYCOPYRROLATE INJ 0.2 MG/ML 2 ML VIAL As Ordered ONE (10:48)
[2022-02-22] MEDS ORDERED: propofoL 200 MG/20 ML VIAL As Ordered ONE (10:48)
[2022-02-22] MEDS ORDERED: LIDOCAINE 2% 100MG/5ML SDV (FOR ANES.) As Ordered ONE (10:48)
== END 2022-02-22 10:46 | disposition home or self-care (01) ==
LOC: M OPP 08:43
PROVIDERS: ATTEND Internal Medicine Gastroenterology
DX: K22.89 Other specified disease of esophagus (principal); K29.70 Gastritis, unspecified, without bleeding; K76.6 Portal hypertension; I10 Essential (primary) hypertension; F17.200 Nicotine dependence, unspecified, uncomplicated; Z79.02 Long term (current) use of antithrombotics/antiplatelets; Z79.82 Long term (current) use of aspirin; Z79.899 Other long term (current) drug therapy; Z80.0 Family history of malignant neoplasm of digestive organs; Z80.7 Family history of other malignant neoplasms of lymphoid, hematopoietic and related tissues; Z97.5 Presence of (intrauterine) contraceptive device

== ENCOUNTER → 2022-03-11 | Outpatient (CLI) | payer OTHER | LOC: M RAD 11:13 | PROVIDERS: ATTEND Internal Medicine Gastroenterology | DX: K76.6 Portal hypertension (principal) ==

== ENCOUNTER → 2022-07-01 | Outpatient (REF) | payer OTHER | LOC: M SFHCWAGY 10:20 | PROVIDERS: ATTEND Advanced Practice Midwife | DX: Z12.4 Encounter for screening for malignant neoplasm of cervix (principal); Z77.9 Other contact with and (suspected) exposures hazardous to health | CPT/HCPCS: 87624; G0123 ==

== ENCOUNTER → 2022-10-20 | Outpatient (CLI) | payer OTHER | LOC: M WHC 09:26 | PROVIDERS: ATTEND Advanced Practice Midwife | DX: Z12.31 Encounter for screening mammogram for malignant neoplasm of breast (principal) ==

== ENCOUNTER → 2022-10-20 | Outpatient (CLI) | payer OTHER | LOC: M WHC 09:04 | PROVIDERS: ATTEND Internal Medicine Gastroenterology | DX: K76.6 Portal hypertension (principal) ==

== ENCOUNTER → 2023-09-06 | Outpatient (CLI) | payer OTHER ==
[~2023-09-06] MED LIST changes: -LOSA100T45 PO; +LOSA100T46 PO
[2023-09-06 17:37] LABS: BASO % 0.4 % (0.0-1.0); EOS # 0.1 10^3/uL (0.0-0.5); EOS % 0.5 % (0.0-3.0); HEMATOCRIT 43.7 % (36.0-47.0); HEMOGLOBIN 14.9 g/dl (12.0-15.5); LYMPH % 30.1 % (24.0-44.0); MEAN CORPUSCULAR HGB CONC 34.1 g/dl (32.0-36.5); MEAN CORPUSCULAR VOLUME 96.7 fl (80.0-96.0); MONO # 0.8 10^3/uL (0.0-0.8); MONO % 7.6 % (2.0-8.0); NEUTROPHILS # 6.1 10^3/uL (1.5-8.5); NEUTROPHILS % 61.1 % (36.0-66.0); PLATELET COUNT, AUTOMATED 280 10^3/uL (150-450); RED BLOOD COUNT 4.52 10^6/uL (4.00-5.40); WHITE BLOOD COUNT 9.9 10^3/uL (4.0-10.0)
[2023-09-06 17:54] LABS: HEMOGLOBIN A1c 5.3 % (4.0-6.0)
[2023-09-06 18:03] LABS: ALBUMIN 3.9 G/DL (3.2-5.2); ALKALINE PHOSPHATASE 93 U/L (46-116); ALT/SGPT 24 U/L (7.0-40); AST/SGOT 20 U/L (<34); BILIRUBIN,TOTAL 0.4 MG/DL (0.3-1.2); BLOOD UREA NITROGEN 12 MG/DL (9-23); CARBON DIOXIDE LEVEL 29 MMOL/L (20-31); CHLORIDE LEVEL 102 MMOL/L (98-107); CHOLESTEROL LEVEL 169 MG/DL (<200); CHOLESTEROL RISK RATIO 2.74 (<5); CREATININE FOR GFR 0.75 MG/DL (0.55-1.30); GLOMERULAR FILTRATION RATE > 60.0 (>58); GLUCOSE, FASTING 92 MG/DL (60-100); HDL CHOLESTEROL 61.5 MG/DL (>40); LDL CHOLESTEROL 74.3 MG/DL (<100); NON-HDL-C 107.5 MG/DL; POTASSIUM SERUM 3.6 MMOL/L (3.5-5.1); SODIUM LEVEL 137 MMOL/L (136-145); THYROID STIMULATING HORMONE 1.898 uIU/ML (0.55-4.78); TOTAL PROTEIN 6.7 G/DL (5.7-8.2); TRIGLYCERIDES LEVEL 166 MG/DL (<150)
== END ==
LOC: M LAB 16:43
PROVIDERS: ATTEND Internal Medicine Cardiovascular Disease
DX: I10 Essential (primary) hypertension (principal); E78.5 Hyperlipidemia, unspecified; R00.2 Palpitations

== ENCOUNTER → 2023-10-24 | Outpatient (CLI) | payer OTHER | LOC: M WHC 13:57 | PROVIDERS: ATTEND Advanced Practice Midwife | DX: Z12.31 Encounter for screening mammogram for malignant neoplasm of breast (principal) ==

== ENCOUNTER → 2023-10-24 | Outpatient (REF) | payer OTHER | LOC: M SFHCWAGY 17:59 | PROVIDERS: ATTEND Advanced Practice Midwife | DX: Z12.4 Encounter for screening for malignant neoplasm of cervix (principal) | CPT/HCPCS: 87624; G0123 ==

== ENCOUNTER → 2024-05-09 | Outpatient (REF) | payer OTHER ==
[2024-05-09 14:04] LABS: APPEARANCE, URINE CLEAR (CLEAR); BACTERIA, URINE AUTO 1+ (NEGATIVE); BILIRUBIN, URINE AUTO NEGATIVE (NEGATIVE); BLOOD, URINE BLOOD 1+ (NEGATIVE); COLOR, URINE YELLOW (YELLOW); GLUCOSE, URINE (UA) AUTO NEGATIVE (NEGATIVE); KETONE, URINE AUTO NEGATIVE (NEGATIVE); LEUKOCYTE ESTERASE, URINE AUTO NEGATIVE (NEGATIVE); NITRITE, URINE AUTO NEGATIVE (NEGATIVE); PROTEIN, URINE AUTO NEGATIVE (NEGATIVE); RBC, URINE AUTO 1 /HPF (0-3); SPECIFIC GRAVITY URINE AUTO 1.009 (1.002-1.035); SQUAMOUS EPITHELIAL CELL UR AU 2 /HPF (0-6); UROBILINOGEN, URINE AUTO 0.2 mg/dL (0.0-2.0); WBC, URINE AUTO 0 /HPF (0-3)
== END ==
LOC: M LAB REF 12:19
PROVIDERS: ATTEND Physician Assistant
DX: N39.0 Urinary tract infection, site not specified (principal)